=== PATIENT | female | born 1985 | race Caucasian/White ===

== ENCOUNTER 2018-05-06 11:19 | Day surgery (SDC) | payer MEDICAID, SELFPAY ==
[2018-05-06] VITALS (7 sets, daily range): BP systolic 121–146; BP diastolic 70–90; PULSE 60–97; RESP 12–18; TEMP 36.4–37.6; O2SAT 95–99
--- NOTE | 2018-05-06 11:44 | DI.RAD_ITS ---
SYMPTOMS/DIAGNOSIS: PAIN S/P FALL LEFT WRIST: Three views. There is a comminuted fracture involving the distal metaphysis of the left radius. There is mild dorsal angulation of the fracture. No other fractures or dislocations are seen. There is soft tissue swelling about the wrist. IMPRESSION: Dorsally angulated comminuted fracture of the distal left radial metaphysis. LEFT WRIST: Fluoroscopy Time: 2 sec, 0.0123 mGy Fluoroscopy was utilized by Dr. Hopper during the closed reduction of the distal radial fracture. Hard copy images again show a comminuted fracture of the distal metaphysis of the left radius. Alignment is now anatomic. Please refer to the procedure report for complete details.
--- NOTE | 2018-05-06 12:01 | ED.GENADUL_ITS ---
Discharge Plan Disposition Patient Disposition: [facility] Condition: Stable Discharge Details Chief Complaint: Orthopedic Clinical Impression: Closed fracture of distal end of left radius Reason For Visit: ARIADNA Primary Care Provider: Roxanne Edwards ED Provider: Matthew Currie Home Meds and New Rx's Prescriptions: No Action Flovent HFA 120 PUFF HFA aerosol inhaler 2 puff Inhalation BID RF: 0 methadone 10 MG/5 ML solution 97 mg PO DAILY RF: 0 ProAir HFA 8.5 GM HFA aerosol inhaler 2 puff Inhalation PRN PRNRF: 0 ibuprofen 600 MG tablet 600 mg PO TID Qty: 30 RF: 0 Medical Decision Making 33 yo female on methadone for prior opiate addiciton, no recent opiate abuse per pt, who comes in after she tripped and fell on 3 steps. Denies hitting head or loc, no vomit. She has pain in the left wrist with swelling. HAs intact capillary refill, intact sensation and 2+ radial and ulnar pulses. NO pain in elbow, upper forearm, humerus or shoulder. Denies any neck pain even on rom and has no signs of trauma to the head. Will xray the left wrist for likely fracture. All muscle soft without significant swelling so doubt compartment syndrome xray confirms fx with some displacement. Consulted Dr. Hopper from ortho who is going to take her to the OR for reduction Differential Diagnosis sprain, strain, fx Imaging Data Radiologic Study: Attestation: I personally reviewed and interpreted this imaging study as follows: Imaging: X-Ray My impression: distal radius fx HPI General Mode of arrival: EMS . Date/Time Provider Initiated Documentation: 05/06/18 11:38 . Limitations to Documentation: no limitations . Information obtained by: patient . History of Present Illness 33 year old F presents to the emergency department with the chief complaint of left forearm pain, described as moderate, with intensity rated at 9. Quality is described as aching and crushing, and is localized to the left and upper extremity. Patient reports no radiation. Patient started experiencing this hour(s) (1) and it has been constant. Rest improves symptom(s), Movement worsens symptoms . Patient notes no other symptoms.. Related Data Home Medications Medication Instructions Recorded Confirmed Flovent HFA 2 puff INHALATION BID 10/20/14 05/06/18 methadone 97 mg PO DAILY 07/21/16 05/06/18 ProAir HFA 2 puff INHALATION PRN PRN 07/09/17 05/06/18 ibuprofen 600 mg PO TID #30 tablet 07/11/17 05/06/18 Previous Rx's Medication Instructions Recorded ibuprofen 600 mg PO TID #30 tablet 07/11/17 Allergies Allergy/AdvReac Type Severity Reaction Status Date / Time peanut Allergy Mild Skin Rash Unverified 08/08/17 12:29 latex Allergy Unknown RASH Unverified 08/08/17 12:29 codeine Allergy GI upset, Unverified 08/08/17 12:29 itchy adhesive AdvReac Skin Rash Unverified 08/08/17 12:29 wellbutrin generic Allergy Uncoded 08/08/17 12:29 General Stated Complaint: Orthopedic EZRA: 3 Review of Systems Review of Systems All systems reviewed & are unremarkable except as noted in HPI and below Constitutional Denies chills and Denies fever(s) Cardiovascular Denies chest pain and Denies dyspnea Respiratory Denies cough and Denies dyspnea Gastrointestinal Denies abdominal pain, Denies nausea and Denies vomiting Genitourinary Denies dysuria Musculoskeletal Denies joint swelling Integumentary/Breasts Denies rash PFSH Surgical History Cervical Conization/LEEP (~2005) section (~10/2004) Excision, Pilonidal Cyst (06/10/12) LEFT ANKLE SURGERY (~1999) Laparoscopic, Ovarian Cystectomy (10/11/11) Ligation of fallopian tube (03/25/07) Social History Smoking and Tabacco status: Current every day Exam Const General: no acute distress Orientation: alert [facility] Head: normal to inspection Ears: external ears normal General nose exam: external nose normal Mouth: moist mucous membranes Eyes General: appearance normal, both eyes and all related structures Neck Neck: normal visual inspection Resp Effort & Inspection: normal respiratory effort and able to speak in complete sentences Cardio Rate: regular rate Skin General skin exam: no rashes or lesions noted Neuro General: alert and oriented x3 Extrem General: normal capillary refill Psych Mental Status: mental status grossly normal Course Vital Signs Temperature 37.6 C H 05/06/18 11:16 Pulse 97 H 05/06/18 11:16 Respiratory Rate 18 05/06/18 11:16 Blood Pressure 146/90 H 05/06/18 11:16 Pulse Oximetry 99 05/06/18 11:16 Temperature 37.6 C H 05/06/18 11:16 Temperature Source Skin 05/06/18 11:16 Pulse 97 H 05/06/18 11:16 Respiratory Rate 18 05/06/18 11:16 Respiratory Effort 05/06/18 11:29 Blood Pressure 146/90 H 05/06/18 11:16 Blood Pressure Position Sitting 05/06/18 11:16 Pulse Oximetry 99 05/06/18 11:16 Oxygen Delivery Method Room Air 05/06/18 11:16 Oxygen Flow Rate 0 05/06/18 11:16 Pain Level 10 05/06/18 11:16
[2018-05-06] MEDS: oxyCODONE 5 MG TAB PO (12:05)
[2018-05-06] MEDS: fentaNYL 100 MCG/2 ML VIAL IVP (13:53)
[2018-05-06] MEDS: Lactated Ringers 1,000 ML 30 ML IV (14:18)
--- NOTE | 2018-05-06 14:53 | PDOC.DSDIS_ITS ---
Discharge Plan Disposition Patient Disposition: HOME Condition: Stable Discharge Details Chief Complaint: Orthopedic Clinical Impression: Closed fracture of distal end of left radius Reason For Visit: Closed Reduction of Fx Distal Radius L Attending Provider: Melecio Hopper Primary Care Provider: Roxanne Edwards ED Provider: Matthew Currie Home Meds and New Rx's Prescriptions: New oxycodone-acetaminophen [Percocet] 5-325 mg tablet 1 tab PO Q6H PRN (Reason: pain) Qty: 10 RF: 0 Continued Flovent HFA 120 PUFF HFA aerosol inhaler 2 puff Inhalation BID RF: 0 methadone 10 MG/5 ML solution 97 mg PO DAILY RF: 0 ProAir HFA 8.5 GM HFA aerosol inhaler 2 puff Inhalation PRN PRNRF: 0 ibuprofen 600 MG tablet 600 mg PO TID Qty: 30 RF: 0 Discharge Instructions Additional Instructions: Cast care instruction sheet. Elevate L hand above heart level as much as possible for next 48 hours. Wiggle fingers and thumb L hand 10 times/hour when awake to prevent swelling. Cover cast with plastic bag sealed with large rubber band below elbow to shower. Follow up with in 2 weeks. Take Ibuprofen for pain. Use Percocet for breakthru pain if needed. Referrals: Melecio Hopper MD [ [facility] STAFF PHYSICIAN] - (f/u in 2 weeks.) Equipment/Supplies: Cast Activity:: Activity as Tolerated Remove Dressings/Wound Care:: Do Not Remove Shower/Bathe:: Cover Diet:: As Tolerated Discharge Orders Discharge Orders: Discharge Order (Routine); Ordered 05/06/18 Ordered By: Melecio Hopper DS: Diagnosis Discharge Diagnosis (1) Fracture of left distal radius: Status: Acute
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
== END 2018-05-06 16:32 | disposition home or self-care (01) ==
LOC: ER 12:57 → SUR 13:20
PROVIDERS: Emergency Provider Emergency Medicine; PCP Internal Medicine; Visit Provider Orthopaedic Surgery
PROC: 0PSJXZZ Reposition Left Radius, External Approach (ICD-10-PCS; CPT 25605; principal; 2018-05-06 12:30)
DX: S52.592A Other fractures of lower end of left radius, initial encounter for closed fracture (principal); W18.30XA Fall on same level, unspecified, initial encounter
CPT/HCPCS: 25605; 96374; 99285; 73110; 99284; J1100; J2250; J2405; J3010

== ENCOUNTER 2018-05-23 11:12 | Outpatient (CLI) | payer MEDICAID, SELFPAY ==
--- NOTE | 2018-05-23 10:59 | DI.RAD_ITS ---
SYMPTOMS/DIAGNOSIS: FX LT DISTAL RADIUS LEFT WRIST: Two views. Comparison is 05/06/18. The patient's wrist is in a cast which does obscure the underlying bony detail. There is again seen a nondisplaced distal left radial fracture.
== END 2018-05-23 11:32 ==
PROVIDERS: PCP Internal Medicine; Visit Provider Physician Assistant
DX: S52.592D Other fractures of lower end of left radius, subsequent encounter for closed fracture with routine healing (principal)
CPT/HCPCS: 73100

== ENCOUNTER 2018-06-13 09:46 | Outpatient (CLI) | payer MEDICAID, SELFPAY ==
--- NOTE | 2018-06-13 09:25 | DI.RAD_ITS ---
SYMPTOMS/DIAGNOSIS: LT WRIST FX LEFT WRIST: The out of cast examination today reveals no interval change in the alignment of a fracture involving the distal radius when compared with the in cast study of 05/23/18.
== END 2018-06-13 10:06 ==
PROVIDERS: PCP Internal Medicine; Visit Provider Physician Assistant
DX: S52.592D Other fractures of lower end of left radius, subsequent encounter for closed fracture with routine healing (principal)
CPT/HCPCS: 73100

== ENCOUNTER 2018-07-16 11:42 | Outpatient (CLI) | payer MEDICAID, SELFPAY ==
--- NOTE | 2018-07-16 10:36 | DI.RAD_ITS ---
SYMPTOMS/DIAGNOSIS: ANKLE PAIN, LT WRIST FX LEFT WRIST: Two views. Comparison is 06/13/18. There has been no change in alignment of the healing fracture of the distal left radial metaphysis. No new fractures or dislocations are seen. The soft tissues are unremarkable. LEFT ANKLE: Three views. No priors. There is deformity of the distal tibia and fibula which may be post traumatic in appearance. Mild degenerative changes are seen at the ankle joint. No acute fracture or dislocation is seen. The bones do appear to be normally mineralized. IMPRESSION: 1. Deformity involving the distal left tibia and fibula which may be post traumatic in nature. 2. Degenerative changes seen about the left ankle. If there are prior studies for comparison, they may be submitted and an addendum will be issued.
== END 2018-07-16 12:02 ==
PROVIDERS: PCP Internal Medicine; Visit Provider Physician Assistant
DX: S52.502D Unspecified fracture of the lower end of left radius, subsequent encounter for closed fracture with routine healing (principal); M25.572 Pain in left ankle and joints of left foot; M19.072 Primary osteoarthritis, left ankle and foot; M21.962 Unspecified acquired deformity of left lower leg
CPT/HCPCS: 73100; 73610

== ENCOUNTER 2019-02-27 19:54 | Emergency (ER) | payer MEDICAID, SELFPAY ==
[2019-02-27 19:56] VITALS: BP 160/106; PULSE 86; RESP 14; TEMP 36.6; O2SAT 98
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
[2019-02-27] MEDS: Ibuprofen 600 MG TAB PO (20:19)
--- NOTE | 2019-02-27 20:45 | DI.RAD_ITS ---
EXAM: XR HAND RT COMPLETE CLINICAL HISTORY: pain s/p fall. TECHNIQUE: 2D digital imaging was performed. COMPARISON: XR WRIST LT COMPLETE from 05/06/2018 FINDINGS: BONES: No acute fracture is present. No bony destructive lesion is seen. JOINTS: No dislocation present. SOFT TISSUE: Normal. IMPRESSION: Unremarkable radiographs of the right hand.
--- NOTE | 2019-02-27 20:47 | DI.RAD_ITS ---
EXAM: XR WRIST RT COMPLETE CLINICAL HISTORY: pain s/p fall. TECHNIQUE: 2D digital imaging was performed. COMPARISON: XR wrist LT limited from 07/16/2018 FINDINGS: BONES: No acute fracture is present. No bony destructive lesion is seen. JOINTS: The carpal bones are normally aligned. SOFT TISSUE: Normal. IMPRESSION: Unremarkable radiographs of the right wrist.
--- NOTE | 2019-02-27 20:59 | DI.VRAD_ITS ---
PROCEDURE INFORMATION: Exam: XR Right Hand Exam date and time: 02/27/2019 8:49 PM Age: 34 years old Clinical history: Pain and injury or trauma; Fall; Initial encounter; Blunt trauma (contusions or hematomas; Wrist; Right; Hand TECHNIQUE: Imaging protocol: XR Right hand. Views: 3 or more views. COMPARISON: CR RIGHT HAND COMPLETE 04/13/2013 5:19 PM FINDINGS: Bones/joints: No acute fracture. Joint spaces are maintained. Soft tissues: Normal. IMPRESSION: No acute findings. Dictated and Authenticated by: Delvin Regalado MD. Ordering:DANIELLE Castro MD
[2019-02-27 21:00] VITALS: BP 162/109; PULSE 91; RESP 16; O2SAT 97
--- NOTE | 2019-02-27 21:00 | DI.VRAD_ITS ---
PROCEDURE INFORMATION: Exam: XR Right Wrist Exam date and time: 02/27/2019 8:50 PM Age: 34 years old Clinical history: Injury or trauma; Fall; Initial encounter; Blunt trauma (contusions or hematomas; Hand; Right TECHNIQUE: Imaging protocol: XR Right wrist. Views: 3 or more views. COMPARISON: CR RT WRIST COMPLETE + NAVICULAR 04/13/2013 5:22 PM FINDINGS: Bones/joints: No acute fracture. Joint spaces are maintained. Soft tissues: Normal. IMPRESSION: No acute findings. Dictated and Authenticated by: Delvin Regalado MD. Ordering:DANIELLE Castro MD
--- NOTE | 2019-02-27 21:07 | NUR.NOTE ---
Thumb spica to right wrist. Educated on use. Discharge instructions reviewed with verbal understanding. aware to f/u with pcp as needed. ambulated to exit with steady gait.
--- NOTE | 2019-02-27 21:08 | NUR.NOTE ---
BP elevated, MD Currie aware. pt encouraged to f/u with pcp.
== END 2019-02-27 21:05 | disposition home or self-care (01) ==
PROVIDERS: Emergency Provider Emergency Medicine; PCP Internal Medicine
DX: S60.211A Contusion of right wrist, initial encounter (principal); Y04.0XXA Assault by unarmed brawl or fight, initial encounter; Y07.03 Male partner, perpetrator of maltreatment and neglect
CPT/HCPCS: 29125; 99284; 73110; 73130; 99283; L3807

== ENCOUNTER 2019-11-16 16:58 | Emergency (ER) | payer MEDICAID, SELFPAY ==
[2019-11-16 17:03] VITALS: BP 163/111; PULSE 102; RESP 20; TEMP 36.8; O2SAT 98
[2019-11-16 17:19] LABS: Bilirubin Negative (Negative); Blood Trace-intact (Negative); Clarity Clear (Clear); Glucose Negative (Negative); Ketones Negative (Negative); Leukocyte Esterase Trace (Negative); Nitrite Negative (Negative); Specific Gravity 1.015 (1.005-1.025); Urobilinogen 0.2 EU/dL (Up TO 0.2); pH 7.5 (5-8)
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
[2019-11-16] MEDS: Ketorolac 30 MG/ML VIAL IVP (17:33)
[2019-11-16 17:34] LABS: Bacteria Negative HPF (Negative); C & S Indicated? Yes; Casts Negative LPF (Negative); Crystals Negative HPF (Negative); Epithelial Cells Few HPF (Negative); Mucus Negative (Negative); Other Cells Negative (Negative); RBC Negative HPF (0-2); WBC 0-2 HPF (0-5)
--- NOTE | 2019-11-16 17:37 | NUR.NOTE ---
Nursing Note: Radiology able to find US Tech that will come in ETA 1 1/2 hours patient informed. Patient states she can not wait that long has someone waiting for her and kids at home alone. MD notified. Patient will need to sign AMA patient updated. Will medicate for pain and wait for urine to come back.
[2019-11-16 17:50] VITALS: BP 141/102; PULSE 96; RESP 18; O2SAT 100
== END 2019-11-16 17:49 | disposition left against medical advice (07) ==
PROVIDERS: Emergency Provider Student in an Organized Health Care Education/Training Program; PCP Internal Medicine
DX: R10.32 Left lower quadrant pain (principal); Z53.29 Procedure and treatment not carried out because of patient's decision for other reasons
CPT/HCPCS: 96372; 99284; 81003; 81015; 87086; 99283; J1885

== ENCOUNTER 2021-02-07 11:48 | Outpatient (CLI) | payer MEDICAID, SELFPAY ==
--- NOTE | 2021-02-07 11:45 | DI.RAD_ITS ---
Exam(s) XR WRIST LT COMPLETE EXAM: XR WRIST LT COMPLETE CLINICAL HISTORY: f/u L wrist pain s/p ECTR. TECHNIQUE: 2D digital imaging was performed. COMPARISON: CR,XR XR WRIST RT COMPLETE from 02/27/2019 FINDINGS: BONES: There is an old fracture deformity of the distal radial metaphysis. No acute fracture is pres ent. No bony destructive lesion is seen. JOINTS: The carpal bones are normally aligned. SOFT TISSUE: Normal. IMPRESSION: Old distal radial fracture. Otherwise unremarkable radiographs of the left wrist. DATA REPOSITORY: RADIATION DOSE DELIVERED:
== END 2021-02-07 11:49 | disposition home or self-care (01) ==
LOC: DIORS 11:48
PROVIDERS: PCP Internal Medicine; Referring Provider Internal Medicine; Visit Provider Student in an Organized Health Care Education/Training Program
DX: M25.532 Pain in left wrist (principal); Z98.890 Other specified postprocedural states; Z87.81 Personal history of (healed) traumatic fracture
CPT/HCPCS: 73110

== ENCOUNTER 2021-02-18 01:37 | Outpatient (CLI) | payer MEDICAID, SELFPAY ==
--- NOTE | 2021-02-18 07:00 | DI.MRI_ITS ---
Exam(s) MR UPPER JOINT LT WO EXAM: MR UPPER JOINT LT WO CLINICAL HISTORY: lt wrist pain, m25.532. TECHNIQUE: Multiplanar multisequence MRI was performed. COMPARISON: None. FINDINGS: BONES: No acute fracture is identified. There is mild edema seen in the dorsal aspect of the lunate. No findings to suggest lunate collapse. There is an old healed distal radial fracture deformity. JOINTS: The radiocarpal joint is unremarkable. The carpal joints are unremarkable. TENDONS: Flexors: Unremarkable. Extensors: Unremarkable. MUSCLES: Unremarkable. MEDIAN NERVE: Unremarkable on this noncontrast examination. ULNAR NERVE: Unremarkable on this noncontrast examination. SOFT TISSUES: Unremarkable. LIGAMENTS: Unremarkable. TRIANGULAR FIBROCARTILAGE: There is appear to be mild increased signal within the TFCC. This may rep resent a tear versus degeneration. OTHER: IMPRESSION: 1. Mild increased signal within the TFCC which may represent a tear versus degeneration. 2. Mild edema in the dorsal aspect of the lunate. No evidence of an occult fracture. Avascular necr osis cannot be entirely excluded. 3. Old healed distal radial fracture. DATA REPOSITORY:
== END 2021-02-18 01:57 ==
PROVIDERS: PCP Internal Medicine; Visit Provider Student in an Organized Health Care Education/Training Program
DX: M25.532 Pain in left wrist (principal); R93.7 Abnormal findings on diagnostic imaging of other parts of musculoskeletal system; Z87.828 Personal history of other (healed) physical injury and trauma
CPT/HCPCS: 73221

== ENCOUNTER 2021-06-10 21:28 | Emergency (ER) | payer MEDICAID, SELFPAY ==
[2021-06-10 21:40] VITALS: BP 153/97; PULSE 98; RESP 18; TEMP 37.7; O2SAT 100
--- NOTE | 2021-06-10 21:55 | ED.GENADUL_ITS ---
Discharge Plan Disposition Patient Disposition: HOME Condition: Stable Discharge Details Clinical Impression: Enterocolitis Primary Care Provider: Roxanne Edwards ED Provider: Beatriz Gomez Home Meds and New Rx's Prescriptions: New dicyclomine 20 mg tablet 20 mg PO BID PRN (Reason: stomach cramps) Qty: 14 0RF ondansetron 4 mg tablet,disintegrating 4 mg PO Q8H PRN5 Days Qty: 15 0RF No Action sumatriptan succinate 100 mg tablet 100 mg PO ONCE 0RF Excedrin Migraine 250-250-65 mg tablet 2 tab PO Q6H PRN0RF methadone 10 MG/5 ML solution 110 mg PO QAM 0RF albuterol sulfate [ProAir HFA] 8.5 GM HFA aerosol inhaler 2 puff Inhalation PRN PRN0RF ibuprofen 600 MG tablet 600 mg PO TID Qty: 30 0RF diphenhydramine-acetaminophen [Tylenol PM Extra Strength] 25-500 mg Tablet 1 tab PO Q6H PRN0RF Discharge Instructions Instructions: Gastroenteritis (ED) Additional Instructions: Take the nausea and pain medication up to 3 times daily as directed approximately 20 to 30 minutes before eating or drinking anything. Clear liquid diet for the next 1 to 2 days. Then advance as tolerated with a bland diet. Stay away from anything fried, fatty, spicy or dairy. The CT today shows some inflammation in your bowel. This can be caused from food poisoning or a virus. Follow up with primary care provider in 3-5 days. Return to ED sooner if any worsening or concerns. Increase oral fluids. Drink Gatorade or similar electrolyte drinks while having the diarrhea. Please take Tylenol or Ibuprofen with food every 4-6 hours as needed for pain and swelling. Stand Alone Forms: Work Release Referrals: Roxanne Edwards [Primary Care Provider] - 3 days Discharge Data Discharge Date/Time-TO BE ENTERED AT DEPARTURE: 06/11/21 06:15 Medical Decision Making 36-year-old female presents to the ER with chief complaint of upper abdominal pain nausea vomiting and diarrhea which began this evening. Patient denies any other associated symptoms including fever, dysuria or chills. Patient reports that she has been off of methadone for the last 3 weeks. She was taking methadone once a week for the last 2 years. She has a past medical history of IV drug use, currently in remission, acute hepatitis C, asthma, depression, surgical history includes hysterectomy and a liver biopsy. Ultrasound-guided IV started in the right brachial vein. Patient tolerated well. Labs obtained and sent to the lab. Normal saline 1 L bolus ordered. Zofran [address] abdomen pelvis with IV contrast ordered. Differential diagnosis includes but not limited to cholecystitis, appendicitis, gastroenteritis, small bowel obstruction, methadone withdrawal, viral illness. CBC shows slightly elevated white blood cell count at 12.41, neutrophils 10.49, potassium 3.2 sodium 141, anion gap 11.7 BUN 17, creatinine 1.1 glucose 111 urinalysis shows 100 protein trace blood no leukocytes no nitrites. CT abdomen pelvis with IV contrast noted below: IMPRESSION: 1. There are diffuse fluid filled loops of small bowel and colon with scattered air fluid levels. The bowel loops are mildly distended. There is mild associated bowel wall thickening and inflammatory changes. No evidence of obstruction. Findings most consistent with diffuse enterocolitis. 2. Contracted but otherwise normal gallbladder. Thank you for allowing us to participate in the care of your patient. Dictated and Authenticated by: Abebe Vazquez MD 12:04 AM: Discussed results with patient. She verbalizes understanding. She is still having some nausea and vomiting and had an episode of diarrhea while here in the department. Phenergan, Pepcid and clonidine 0.1 mg ordered for possible delayed methadone withdrawal. Zofran tablets to go ordered. And prescription for Zofran and dicyclomine. HPI General Mode of arrival: ambulatory . Date/Time Provider Initiated Documentation: 06/10/21 21:29 . Limitations to Documentation: no limitations . Information obtained by: patient, RN notes reviewed and old records reviewed . HPI Narrative: 36-year-old female presents to the ER with chief complaint of upper abdominal pain nausea vomiting and diarrhea which began this evening. Patient denies any other associated symptoms including fever, dysuria or chills. Patient reports that she has been off of methadone for the last 3 weeks. She was taking methadone once a week for the last 2 years. She has a past medical history of IV drug use, currently in remission, acute hepatitis C, asthma, depression, surgical history includes hysterectomy and a liver biopsy. Related Data Home Medications Medication Instructions Recorded Confirmed methadone 10 mg/5 mL oral solution 110 mg PO QAM 07/21/16 02/07/21 albuterol sulfate 90 mcg/actuation 2 puff INHALATION PRN PRN 07/09/17 02/07/21 aerosol inhaler (ProAir HFA) ibuprofen 600 mg tablet 600 mg PO TID #30 tab 07/11/17 02/07/21 nyvjnzy-zofbmjzveunkz-ugnadigp 250 2 tab PO Q6H PRN 05/23/18 02/07/21 mg-250 mg-65 mg tablet (Excedrin Migraine) sumatriptan succinate 100 mg tablet 100 mg PO ONCE 05/23/18 02/07/21 dicyclomine 20 mg tablet 20 mg PO BID PRN #14 tab 06/10/21 diphenhydramine 25 1 tab PO Q6H PRN 06/10/21 06/10/21 mg-acetaminophen 500 mg tablet (Tylenol PM Extra Strength) ondansetron 4 mg disintegrating 4 mg PO Q8H PRN 5 Days #15 tab 06/10/21 tablet Previous Rx's Medication Instructions Recorded ibuprofen 600 mg tablet 600 mg PO TID #30 tab 07/11/17 dicyclomine 20 mg tablet 20 mg PO BID PRN #14 tab 06/10/21 ondansetron 4 mg disintegrating 4 mg PO Q8H PRN 5 Days #15 tab 06/10/21 tablet Allergies Allergy/AdvReac Type Severity Reaction Status Date / Time peanut Allergy Mild Skin Rash Unverified 06/10/21 21:49 latex Allergy Unknown RASH Unverified 06/10/21 21:49 codeine Allergy GI upset, Unverified 06/10/21 21:49 itchy adhesive AdvReac Skin Rash Unverified 06/10/21 21:49 wellbutrin generic Allergy Uncoded 06/10/21 21:49 General Stated Complaint: Nausea/Vomit/Diar EZRA: 3 Review of Systems All systems reviewed & are unremarkable except as noted in HPI and below Gastrointestinal Gastrointestinal: Reports abdominal pain, Denies hematochezia, Reports diarrhea, Reports nausea and Reports vomiting Genitourinary Genitourinary: Reports dysuria PFSH All Active Problems Enterocolitis (Acute) Left carpal tunnel syndrome (Acute) Left wrist pain (Acute) Post-traumatic osteoarthritis of left ankle (Chronic) Abnormal laboratory test result (Acute) TSH DEFICIENCY Acute hepatitis C (Acute) Allergic rhinitis (Acute) Asthma (Acute) Cervical intraepithelial neoplasia grade 1 (Acute) Chronic pelvic pain in female (Acute) Depressive disorder (Acute) Dyslipidemia (Acute) Headache (Acute) Obstructive sleep apnea syndrome (Acute) Enlarged pituitary gland (Acute) Smoker (Acute) Substance abuse (Acute) Uterovaginal prolapse (Acute) PELVIC RELAXATION Fracture of left distal radius (Acute) Status post closed reduction on 05/06/2018 Surgical History Cervical Conization/LEEP (~2005) section (~10/2004) Excision, Pilonidal Cyst (06/10/12) Laparoscopic, Ovarian Cystectomy (10/11/11) RIGHT LEFT ANKLE SURGERY (~1999) Ligation of fallopian tube (03/25/07) Social History Smoking/Tobacco Use Status: Current every day Tobacco Type: cigarettes Smoking risk assessment performed?: Yes Alcohol Intake: current Alcohol Intake frequency: a few times a month Alcohol type: other Drug use: Daily Substance use type: marijuana Details: marijuana at bedtime Do you feel safe at home: Yes Do you feel safe in your relationship?: Yes Exam Narrative Exam Narrative: Constitutional: Alert and oriented x3. Appears stated age. Normal body habitus. Head: Normocephalic, no trauma. Eyes: Pupils PERRL, Red reflex noted, EOM's intact. Eyelids symmetrical without lesions, discharge, or swelling. ENT: Bilateral TM's WNL, External ear normal to inspection, no mastoid TTP, swelling, or erythema, Nasal turbinates WNL, no nasal discharge. Normal d entition, Posterior pharynx WNL, no exudate. Chest: RRR, Normal S1, S2, distal pulses intact. Resp: Lungs clear to auscultation bilaterally, no wheezes, rales, or rhonchi. Abdomen: Soft, non-distended, Normoactive bowel sounds all 4 quads. Tenderness to the right upper quadrant with palpation. Musculoskeletal: Normal gait, 5/5 strength to all four extremities. Skin: No suspicious rashes or lesions. Capillary refill less than 2 sec. Neurologic: Cranial nerves II-XII intact. Alert and oriented x 3. Motor: No deficits noted. Sensory: Intact bilaterally all 4 extremities. Reflexes: DTR's intact bilaterally.. Hematologic/Lymphatic: No ecchymosis, no lymphadenopathy. Course Vital Signs Vital signs: Vital Signs Temperature 37.7 C H 06/10/21 21:40 Pulse 98 H 06/10/21 21:40 Respiratory Rate 18 06/10/21 21:40 Blood Pressure 153/97 H 06/10/21 21:40 Pulse Oximetry 100 06/10/21 21:40 Temperature 37.7 C H 06/10/21 21:40 Temperature Source Temporal Artery Scan 06/10/21 21:40 Pulse 98 H 06/10/21 21:40 Respiratory Rate 18 06/10/21 21:40 Respiratory Effort Non-Labored 06/10/21 21:43 Blood Pressure 153/97 H 06/10/21 21:40 Blood Pressure Position Sitting 06/10/21 21:40 Pulse Oximetry 100 06/10/21 21:40 Oxygen Delivery Method Room Air 06/10/21 21:40 Oxygen Flow Rate 0 06/10/21 21:40 Pain Level 7 06/10/21 21:40 Procedures EJ/Peripheral Line Arm R: Time Out Performed: No Skin Cleansed in Sterile Fashion: Yes Size (gauge): 20 IV Secured and Dressing Applied: Yes Patient Tolerated Procedure: well PAWSS Have you Been Recently Intoxicated or Drunk Within the Last 30 days?: No Have you Ever Experienced Previous Episodes of Alcohol Withdrawal?: No Have you ever Experienced Withdrawal Seizures?: No Have you ever Experienced Delirium Tremens(DT)s?: No Have you ever undergone Alcohol Rehabilitation Treatment (i.e, inpt ot outpatient treatment programs)?: No Have you ever Experienced Blackouts?: No Have you ever Combined Alcohol with other Downers within the last 90 days?: No Have you ever Combined Alcohol with any other Substance of Abuse during the last 90 days?: No Positive Blood Alcohol level on Presentation? [PCS.BAL]: No Evidence of Increased Autonomic Activity (i.e. HR>120, tremor, sweating, agitation, nausea)?: No Result: 0
[2021-06-10 22:02] LABS: Bilirubin Negative (Negative); Blood Trace-intact (Negative); Clarity Clear (Clear); Glucose Negative (Negative); Ketones Negative (Negative); Leukocyte Esterase Negative (Negative); Nitrite Negative (Negative); Specific Gravity >= 1.030 (1.005-1.025); Urobilinogen 0.2 EU/dL (Up TO 0.2); pH 6.5 (5-8)
[2021-06-10 22:15] LABS: Bacteria Many HPF (Negative); Epithelial Cells Many HPF (Negative); RBC Negative HPF (0-2)
--- NOTE | 2021-06-10 22:15 | DI.CT_ITS ---
Exam(s) CT ABDOMEN PELVIS W EXAM: CT ABDOMEN PELVIS W CLINICAL HISTORY: Abd pain, N/V/D, R/O Cholecystitis. TECHNIQUE: Imaging Protocol: Axial computed tomography images with coronal and sagittal reformatted images were created and reviewed CONTRAST MATERIAL: Intravenous: Omnipaque 350 Contrast volume:100 ml Oral: no COMPARISON: No exams were available for comparison FINDINGS: ABDOMEN: Lung Bases: Normal where visualized. Liver: Normal density. No measurable mass. Gallbladder and biliary tract: Contracted. No radiodense calculus or biliary dilation. Pancreas: Normal density, no abnormal calcifications or inflammatory process. Spleen: Normal. Kidneys: Normal size, contour and axis. No radiodense stones or obstructive uropathy. No masses seen. Adrenal glands: No masses seen. Abdominal Aorta: Abdominal portion non-dilated. PELVIS: Bladder: No gross wall thickening. No calculi.No focal mass. Bowel: Abnormal thickening of bowel wall of multiple loops of jejunum consistent with enteritis. Mid to distal small bowel unremarkable. No obstruction. Appendix normal. Colon contains fluid and sma ll amount of stool. Peritoneal cavity: No ascites, collection or mesenteric inflammatory response. Bones: Within normal limits for age. Reproductive organs: Status post hysterectomy. Ovaries unremarkable.. Soft tissues: Small fatty con taining hernia seen at the right lateral abdominal wall at the level of the right iliac crest. Lymph nodes: Unremarkable. Impression: Wall thickening loops of proximal small bowel. Fluid-filled colon. Findings consistent with enteroc olitis. At small fatty right sided abdominal wall hernia.. RADIATION DOSE DELIVERED: 712.95mGy.cm Total DLP DATA REPOSITORY: All CT scans at this facility are submitted to the National Radiology Data Registry (NRDR) Dose Index Registry (DIR) with the [employer] ([employer]). RADIATION OPTIMIZATION: All CT scans at this facility use at least one of these dose optimization te chniques: automated exposure control; mA and/or kV adjustment per patient size (includes targeted exa ms where dose is matched to clinical indication); or iterative reconstruction.
[2021-06-10 22:16] LABS: C & S Indicated? No/Sq. Contamination; Casts Negative LPF (Negative); Crystals Negative HPF (Negative); Mucus Negative (Negative)
[2021-06-10 22:19] LABS: Abs Immature Grans 0.04 10^3/uL (0.0-0.06); Absolute Basophil Count 0.02 10^3/uL (0.0-0.2); Absolute Eosinophil Count 0.19 10^3/uL (0.0-0.7); Absolute Lymphocyte Count 1.27 10^3/uL (1.2-3.4); Absolute Monocyte Count 0.41 10^3/uL (0.1-0.8); Absolute Neutrophil Count 10.49 10^3/uL (1.2-6.7); Basophils % 0.2; Eosinophils % 1.5; HCT 41.9 % (36.0-46.0); HGB 13.4 g/dL (11.2-15.7); Immature Grans % 0.3; Lymphocytes % 10.2; MCH 30.7 pg (27.0-33.0); MCV 96.1 fL (80-95); MPV 9.7 fL (8.0-11.0); Monocytes % 3.3; Neutrophils % 84.5; Nucleated RBC 0 %; Platelet Count 332 10^3/uL (130-400); RBC 4.36 10^6/uL (3.93-5.22); RDW-SD 50.3 fL; WBC 12.41 10^3/uL (4.4-10.8)
[2021-06-10] MEDS: Ondansetron 4 MG/2 ML VIAL IVP (22:23)
[2021-06-10] MEDS: Normal Saline 1,000 ML 1000 ML IV (22:23)
[2021-06-10 22:34] LABS: ALT 36 U/L (14-59); AST 17 U/L (15-37); Albumin 4.7 g/dL (3.4-5.0); Alkaline Phosphatase 88 U/L (46-116); Anion Gap 11.7 mmol/L (3-11); BUN 17 mg/dL (7-18); Bilirubin, Total 0.7 mg/dL (0.2-1.0); CO2 23.3 mmol/L (21.0-32.0); CREATININE 1.1 mg/dL (0.55-1.02); Calcium 9.3 mg/dL (8.5-10.1); Chloride 106 mmol/L (98-107); Estimated GFR 55.89 (mL/min/1.73m2); Glucose 111 mg/dL (74-106); Magnesium 2.2 mg/dL (1.8-2.4); Potassium 3.2 mmol/L (3.5-5.1); Sodium 141 mmol/L (136-145); Total Protein 8.7 g/dL (6.4-8.2)
[2021-06-10] MEDS: Omnipaque 350 MG/ML 100 ML BTL IJ (23:00)
[2021-06-10] MEDS: Ketorolac 15 MG/ML VIAL IVP (23:13)
[2021-06-10 23:14] VITALS: BP 156/98; PULSE 95; RESP 14; TEMP 38.5; O2SAT 100
[2021-06-10 23:22] VITALS: TEMP 37
--- NOTE | 2021-06-10 23:40 | DI.VRAD_ITS ---
PROCEDURE INFORMATION: Exam: CT Abdomen And Pelvis With Contrast Exam date and time: 06/10/2021 10:53 PM Age: 36 years old Clinical indication: Nausea and vomiting and other: Diarrhea; Abdominal pain; Generalized; Patient HX: R/O colitis, acute cholecystitis. TECHNIQUE: Imaging protocol: Computed tomography of the abdomen and pelvis with contrast. Radiation optimization: All CT scans at this facility use at least one of these dose optimization techniques: automated exposure control; mA and/or kV adjustment per patient size (includes targeted exams where dose is matched to clinical indication); or iterative reconstruction. COMPARISON: ABDOMEN LIMITED/FOLLOW UP US 07/30/2017 3:21 PM FINDINGS: Lungs: The lungs are normal. There is no evidence of focal pulmonary consolidation. Pleural spaces: There is no evidence of pneumothorax. There are no pleural effusions present. Heart: The cardiac structures are normal. Liver: There are no focal liver lesions present. There is no evidence of intrahepatic or extrahepatic biliary ductal dilation. Gallbladder and bile ducts: The gallbladder is contracted but otherwise normal. There is no cholelitiasis, wall thickening or pericholecystic fluid to suggest cholecystitis. Pancreas: The pancreas is normal. Spleen: The spleen is normal. Adrenal glands: The adrenal glands are normal. Kidneys and ureters: The kidneys are normal. Stomach and bowel: There are diffuse fluid filled loops of small bowel and colon with scattered air fluid levels. The bowel loops are mildly distended. There is mild associated bowel wall thickening and inflammatory changes. No evidence of obstruction. Findings most consistent with diffuse enterocolitis. There is no evidence of intestinal obstruction. No diverticulitis is present. Appendix: A normal appendix is identified. There is no evidence of distention or periappendiceal inflammation to suggest appendicitis. Intraperitoneal space: There is no free intraperitoneal air. There is no evidence of free intraperitoneal or pelvic fluid. There are no soft tissue masses or fluid collections. Vasculature: The aorta is normal without evidence of significant atherosclerosis or aneurysmal disease. The peripheral arterial vascular system visualized is unremarkable. The portal venous system visualized is unremarkable. The venous system visualized is unremarkable. Lymph nodes: There is no evidence of lymphadenopathy. Urinary bladder: The bladder is normal. Reproductive: The uterus is normal. The ovaries are normal. Bones/joints: The skeletal structures show no evidence of fracture or other acute processes. Soft tissues: The extra-abdominal soft tissues are normal. IMPRESSION: 1. There are diffuse fluid filled loops of small bowel and colon with scattered air fluid levels. The bowel loops are mildly distended. There is mild associated bowel wall thickening and inflammatory changes. No evidence of obstruction. Findings most consistent with diffuse enterocolitis. 2. Contracted but otherwise normal gallbladder. Dictated and Authenticated by: Abebe Vazquez MD. Ordering:FIORELLA Henderson MD
[2021-06-11] MEDS: Normal Saline Flush 10 ML SYR IVP (00:14)
[2021-06-11] MEDS: cloNIDine 0.1 MG TAB PO (00:14)
[2021-06-11] MEDS: Famotidine 20 MG/2 ML VIAL IVP (00:14)
[2021-06-11 01:07] VITALS: BP 148/92; PULSE 77; RESP 14; TEMP 37.7; O2SAT 100
[2021-06-11 02:32] VITALS: BP 147/94; PULSE 82; RESP 12; TEMP 37; O2SAT 100
[2021-06-11 04:03] VITALS: BP 154/95; PULSE 73; RESP 18; TEMP 37.1; O2SAT 100
[2021-06-11 05:58] VITALS: BP 135/76; PULSE 64; RESP 16; TEMP 36.9; O2SAT 100
[2021-06-11 06:04] VITALS: BP 135/76; PULSE 64; RESP 16; TEMP 36.9; O2SAT 100
== END 2021-06-11 06:15 | disposition home or self-care (01) ==
PROVIDERS: Emergency Provider Registered Nurse Emergency; PCP Internal Medicine
DX: K52.9 Noninfective gastroenteritis and colitis, unspecified (principal); R10.10 Upper abdominal pain, unspecified; R11.2 Nausea with vomiting, unspecified; R19.7 Diarrhea, unspecified
CPT/HCPCS: 36556; 80053; 96361; 96365; 96375; 99285; 74177; 81003; 81015; 83735; 85025; 99284; J1885; J2405; J3490

== ENCOUNTER 2021-09-19 23:41 | Emergency (ER) | payer MEDICAID, SELFPAY ==
[2021-09-19 23:45] VITALS: BP 148/100; PULSE 125; RESP 18; TEMP 36.8; O2SAT 99
--- NOTE | 2021-09-20 | DI.RAD_ITS ---
Exam(s) XR HAND RT COMPLETE EXAM: XR HAND RT COMPLETE CLINICAL HISTORY: pain, injury, tender 3-5 digits. TECHNIQUE: 2D digital imaging was performed. COMPARISON: CR,XR XR HAND RT COMPLETE from 02/27/2019 FINDINGS: 3 views There is mild dorsal soft tissue swelling, as seen on the lateral view. Also seen on the lateral vie w is a 2 x 1 millimeter osteophytic density off the dorsal proximal aspect of the distal phalanx of t he 5th finger, not previously present. Possibly avulsion injury. Correlation with site of tendernes s is recommended. IMPRESSION: Fifth finger findings as above, not previously evident on February 2019 images. Correlation with sit e of tenderness is recommended. DATA REPOSITORY: RADIATION DOSE DELIVERED:
--- NOTE | 2021-09-20 00:06 | ED.GENADUL_ITS ---
Discharge Plan Disposition Patient Disposition: HOME Condition: Stable Discharge Details Clinical Impression: Contusion of right hand, initial encounter Primary Care Provider: Roxanne Edwards ED Provider: Tejinder Marr Home Meds and New Rx's Prescriptions: Continued ibuprofen 600 MG tablet 600 mg PO TID Qty: 30 0RF diphenhydramine-acetaminophen [Tylenol PM Extra Strength] 25-500 mg Tablet 1 tab PO Q6H PRN Discharge Instructions Instructions: Contusion in Adults (ED) Additional Instructions: Keep splint in place for the next few days. Please take ibuprofen over the counter. Take 600mg by mouth every 6 hours as needed for pain. If pain persists if pain persists greater than 1 week, please follow-up with orthopedics. Please take ibuprofen over the counter. Take 600mg by mouth every 6 hours as needed for pain. Please contact your primary care physician to arrange follow-up. Return to the ER immediately for any worsening or new concerning symptoms. Referrals: Roxanne Edwards [Primary Care Provider] - Medical Decision Making 0012 -- 36-year-old female here with right hand injury after slip and fall around 10 PM tonight. Patient has swelling and ecchymosis as well as tenderness dorsal hand over her 3-5 MCP joints. Bruising and swelling is worse just proximal to 4th MCP. Patient is neurovascular intact distally. Concern for hand fracture. Plan to obtain x-ray. Will give ibuprofen 600 mg and apply ice. 135 -- xray of the rt hand reviewed and interpreted by radiology: No acute osseous abnormality. If symptoms persist, follow-up imaging is advised. Patient was reassessed. Results discussed with the patient. Suspect contusion. Volar splint applied to hand. Patient neurovascular intact post splint application. Usual customary discharge instructions were reviewed with the patient. She was encouraged to follow-up with orthopedics should symptoms persist greater than 1 week. She was encouraged to return for any worsening or new concerning symptoms. HPI General Mode of arrival: ambulatory . Date/Time Provider Initiated Documentation: 09/19/21 23:48 . Limitations to Documentation: no limitations . Information obtained by: patient . HPI Narrative: 36yo f here with chief complaint of right hand pain. Patient notes around 10 PM tonight she slipped and fell in her bathroom and landed in her tub. She injured her right hand during the fall. Pain is localized to right third and fourth MCPs and digits 3-5. She denies associated numbness. She does note she impacted her right elbow and left lower leg during the fall but does not believe she sustained significant injury. Related Data Home Medications Medication Instructions Recorded Confirmed ibuprofen 600 mg tablet 600 mg PO TID #30 tabs 07/11/17 09/19/21 diphenhydramine 25 1 tab PO Q6H PRN 06/10/21 09/19/21 mg-acetaminophen 500 mg tablet (Tylenol PM Extra Strength) Previous Rx's Medication Instructions Recorded ibuprofen 600 mg tablet 600 mg PO TID #30 tabs 07/11/17 Allergies Allergy/AdvReac Type Severity Reaction Status Date / Time peanut Allergy Mild Skin Rash Unverified 09/19/21 23:48 latex Allergy Unknown RASH Unverified 09/19/21 23:48 codeine Allergy GI upset, Unverified 09/19/21 23:48 itchy adhesive AdvReac Skin Rash Unverified 09/19/21 23:48 wellbutrin generic Allergy Uncoded 09/19/21 23:48 General Stated Complaint: Orthopedic EZRA: 4 Review of Systems Musculoskeletal Musculoskeletal: Reports as per HPI Neurologic Neurologic: Reports as per HPI and Denies sensory deficit PFSH All Active Problems Contusion of right hand, initial encounter (Acute) Left carpal tunnel syndrome (Acute) Left wrist pain (Acute) Post-traumatic osteoarthritis of left ankle (Chronic) Abnormal laboratory test result (Acute) TSH DEFICIENCY Acute hepatitis C (Acute) Allergic rhinitis (Acute) Asthma (Acute) Cervical intraepithelial neoplasia grade 1 (Acute) Chronic pelvic pain in female (Acute) Depressive disorder (Acute) Dyslipidemia (Acute) Headache (Acute) Obstructive sleep apnea syndrome (Acute) Enlarged pituitary gland (Acute) Smoker (Acute) Substance abuse (Acute) Uterovaginal prolapse (Acute) PELVIC RELAXATION Fracture of left distal radius (Acute) Status post closed reduction on 05/06/2018 Surgical History Cervical Conization/LEEP (~2005) section (~10/2004) Excision, Pilonidal Cyst (06/10/12) Laparoscopic, Ovarian Cystectomy (10/11/11) RIGHT LEFT ANKLE SURGERY (~1999) Ligation of fallopian tube (03/25/07) Social History Smoking/Tobacco Use Status: Current every day Tobacco Type: cigarettes Smoking risk assessment performed?: Yes Alcohol Intake: current Alcohol Intake frequency: a few times a month Alcohol type: other Drug use: Daily Substance use type: marijuana Details: marijuana at bedtime Do you feel safe at home: Yes Do you feel safe in your relationship?: Yes Exam Const General: cooperative and no acute distress HENMT Head: normocephalic and atraumatic Cardio Rate: regular rate and not tachycardic Rhythm: regular rhythm Neuro General: patient alert, patient awake and tone normal Extrem General: no edema Right upper extremity: hand Details: neurosensory exam normal, tenderness Location: of the 4th digit Location: at the MCP joint, abnormal ROM of finger Details: pain with active ROM Location: of the 3rd digit, of the 4th digit and of the 5th digit, swelling Location: of the dorsal hand and ecchymosis Location: of the dorsal hand and of the palm Course Vital Signs Vital signs: Vital Signs Temperature 36.8 C 09/19/21 23:45 Pulse 125 H 09/19/21 23:45 Respiratory Rate 18 09/19/21 23:45 Blood Pressure 148/100 H 09/19/21 23:45 Pulse Oximetry 99 09/19/21 23:45 Temperature 36.8 C 09/19/21 23:45 Temperature Source Skin 09/19/21 23:45 Pulse 125 H 09/19/21 23:45 Respiratory Rate 18 09/19/21 23:45 Respiratory Effort Non-Labored 09/19/21 23:50 Blood Pressure 148/100 H 09/19/21 23:45 Pulse Oximetry 99 09/19/21 23:45 Pain Level 7 09/19/21 23:45
[2021-09-20] MEDS: Ibuprofen 600 MG TAB PO (00:14)
--- NOTE | 2021-09-20 01:03 | DI.VRAD_ITS ---
PROCEDURE INFORMATION: Exam: XR Right Hand Exam date and time: 09/20/2021 12:28 AM Age: 36 years old Clinical indication: Injury or trauma; Blunt trauma (contusions or hematomas); Hand; Right; Injury date: 09/19/21; Injury details: Fall, tender 3-5 digits TECHNIQUE: Imaging protocol: Radiologic exam of the Right hand. Views: 3 or more views. COMPARISON: CR XR HAND RT COMPLETE 02/27/2019 8:45 PM FINDINGS: Bones/joints: No evidence of fracture. Negative for dislocation. Negative for bony erosion or destructive change. Soft tissues: No soft tissue air. No foreign bodies. Soft tissue swelling noted dorsal to the metacarpophalangeal joints. IMPRESSION: No acute osseous abnormality. If symptoms persist, follow-up imaging is advised. Dictated and Authenticated by: Matthew Lucas MD. Ordering:CHINA Marr MD
[2021-09-20 01:44] VITALS: PULSE 105; RESP 16; O2SAT 98
== END 2021-09-20 01:45 | disposition home or self-care (01) ==
PROVIDERS: Emergency Provider Student in an Organized Health Care Education/Training Program; PCP Internal Medicine
DX: S60.221A Contusion of right hand, initial encounter (principal); F17.210 Nicotine dependence, cigarettes, uncomplicated; W01.0XXA Fall on same level from slipping, tripping and stumbling without subsequent striking against object, initial encounter; Y92.89 Other specified places as the place of occurrence of the external cause
CPT/HCPCS: 29125; 99283; 73130; 99284

== ENCOUNTER 2022-02-07 17:05 | Emergency (ER) | payer MEDICAID, SELFPAY ==
[2022-02-07 17:12] VITALS: BP 143/104; PULSE 103; RESP 20; TEMP 37; O2SAT 98
--- NOTE | 2022-02-07 17:15 | DI.RAD_ITS ---
Exam(s) XR WRIST LT COMPLETE EXAM: XR WRIST LT COMPLETE CLINICAL HISTORY: fall, pain. TECHNIQUE: 2D digital imaging was performed of the left wrist. Three images were obtained. PA, obl ique and lateral views were obtained. COMPARISON: CR XR WRIST LT COMPLETE from 02/07/2021 FINDINGS: BONES: There is an old distal left radial fracture deformity. There is a tiny osseous density glass ribbon machine operator ior to the distal radius and ulna on the lateral view. This was not present on the prior examination . No definite acute fracture is identified. No bony destructive lesion is seen. JOINTS: The carpal bones are normally aligned. SOFT TISSUE: Normal. IMPRESSION: Tiny 1-2 mm density in the soft tissues posterior to the distal radius and ulna of indeterminate if a ny clinical significance. Please correlate clinically. If symptoms persist, a CT scan of the wrist may be obtained to exclude a fracture. DATA REPOSITORY: RADIATION DOSE DELIVERED:
--- NOTE | 2022-02-07 17:57 | DI.VRAD_ITS ---
PROCEDURE INFORMATION: Exam: XR Left Wrist Exam date and time: 02/07/2022 5:32 PM Age: 37 years old Clinical indication: Other: Fall, injury TECHNIQUE: Imaging protocol: Radiologic exam of the Left wrist. Views: 3 or more views. COMPARISON: CR XR WRIST LT COMPLETE 02/07/2021 11:59 AM FINDINGS: Bones/joints: Chronic distal radial deformity. Faint fragment versus ossification on the lateral film dorsally measuring 1-2 mm new since the prior study. Lucency along the radial aspect of the distal radius on the oblique film of indeterminate age Soft tissues: Swelling over the distal radius and ulna IMPRESSION: Swelling and indeterminate age fracture in the distal left radius. Indeterminate age faint avulsion fracture versus calcification dorsally as noted. Further evaluation as clinically indicated Dictated and Authenticated by: Biju Loera MD. Ordering:TERE Gonzalez MD
--- NOTE | 2022-02-07 18:11 | W.ED.GENAD ---
Discharge Plan Disposition Patient Disposition: Home Condition: Stable Discharge Details Clinical Impression: Fracture of left wrist Primary Care Provider: Roxanne Edwards ED Provider: Lisa Duarte Home Meds and New Rx's Prescriptions: Continued ibuprofen 600 MG tablet 600 mg PO TID Qty: 30 0RF diphenhydramine-acetaminophen [Tylenol PM Extra Strength] 25-500 mg Tablet 1 tab PO Q6H PRN Discharge Instructions Instructions: Wrist Fracture in Adults (ED) Additional Instructions: Wear wrist splint until evaluated by orthopedics Continue elevation heat or ice and ibuprofen and/or acetaminophen for pain Referrals: Rickie Carter MD [ [facility] STAFF PHYSICIAN] - Medical Decision Making X-ray left wrist with swelling and indeterminate age fracture in the distal left radius indeterminate age faint avulsion fracture versus calcification dorsally also. We will place her in a wrist splint continue conservative management and follow-up with orthopedics for further recommendations Imaging Data Radiologic Study: Imaging: X-Ray (Left wrist) Radiologist's impression: Exam(s) PROCEDURE INFORMATION: Exam: XR Left Wrist Exam date and time: 02/07/2022 5:32 PM Age: 37 years old Clinical indication: Other: Fall, injury TECHNIQUE: Imaging protocol: Radiologic exam of the Left wrist. Views: 3 or more views. COMPARISON: CR XR WRIST LT COMPLETE 02/07/2021 11:59 AM FINDINGS: Bones/joints:? Chronic distal radial deformity. Faint fragment versus ossification on the lateral film dorsally measuring 1-2 mm new since the prior study.? Lucency along the radial aspect of the distal radius on the oblique film of indeterminate age Soft tissues:? Swelling over the distal radius and ulna IMPRESSION: Swelling and indeterminate age fracture in the distal left radius. Indeterminate age faint avulsion fracture versus calcification dorsally as noted.? Further evaluation as clinically indicated Dictated and Authenticated by: Biju Loera MD. Ordering:TERE Gonzalez MD Sign Out No HPI General Date/Time Provider Initiated Documentation: 02/07/22 17:14. Limitations to Documentation: no limitations. Information obtained by: patient. HPI Narrative: 37-year-old female patient who was in her usual state of health when she had a mechanical fall about 3 days ago slipping down a staircase. She put her left hand out to break her fall and has had left wrist pain mostly anterior that radiates up to her hand with reported numbness and tingling in her fingers. She states she has had a previous fracture to this wrist. There is no other injuries reported Related Data Home Medications Medication Instructions Recorded Confirmed ibuprofen 600 mg tablet 600 mg PO TID #30 tabs 07/11/17 09/19/21 diphenhydramine 25 1 tab PO Q6H PRN 06/10/21 09/19/21 mg-acetaminophen 500 mg tablet (Tylenol PM Extra Strength) Previous Rx's Medication Instructions Recorded ibuprofen 600 mg tablet 600 mg PO TID #30 tabs 07/11/17 Allergies Allergy/AdvReac Type Severity Reaction Status Date / Time peanut Allergy Mild Skin Rash Unverified 09/19/21 23:48 latex Allergy Unknown RASH Unverified 09/19/21 23:48 codeine Allergy GI upset, Unverified 09/19/21 23:48 itchy adhesive AdvReac Skin Rash Unverified 09/19/21 23:48 wellbutrin generic Allergy Uncoded 09/19/21 23:48 General Stated Complaint: Orthopedic EZRA: 4 Review of Systems All systems reviewed & are unremarkable except as noted in HPI and below Musculoskeletal Musculoskeletal: Denies deformity, Reports arthralgias, Reports joint swelling (Minimal), Reports radiating pain into limb and Reports tingling Neurologic Neurologic: Reports tingling Hematologic/Lymphatic Hematologic/Lymphatic: Denies easy bleeding and Denies easy bruising PFSH All Active Problems Fracture of left wrist (Acute) Left carpal tunnel syndrome (Acute) Left wrist pain (Acute) Post-traumatic osteoarthritis of left ankle (Chronic) Abnormal laboratory test result (Acute) TSH DEFICIENCY Acute hepatitis C (Acute) Allergic rhinitis (Acute) Asthma (Acute) Cervical intraepithelial neoplasia grade 1 (Acute) Chronic pelvic pain in female (Acute) Depressive disorder (Acute) Dyslipidemia (Acute) Headache (Acute) Obstructive sleep apnea syndrome (Acute) Enlarged pituitary gland (Acute) Smoker (Acute) Substance abuse (Acute) Uterovaginal prolapse (Acute) PELVIC RELAXATION Fracture of left distal radius (Acute) Status post closed reduction on 05/06/2018 Surgical History Cervical Conization/LEEP (~2005) section (~10/2004) Excision, Pilonidal Cyst (06/10/12) Laparoscopic, Ovarian Cystectomy (10/11/11) RIGHT LEFT ANKLE SURGERY (~1999) Ligation of fallopian tube (03/25/07) Social History Smoking/Tobacco Use Status: Current every day Tobacco Type: cigarettes Smoking risk assessment performed?: Yes Alcohol Intake: current Alcohol Intake frequency: a few times a month Alcohol type: other Drug use: Daily Substance use type: marijuana Details: marijuana at bedtime Do you feel safe at home: Yes Do you feel safe in your relationship?: Yes Exam Const General: cooperative, healthy appearing, comfortable and no acute distress Nutritional Appearance: average body habitus Orientation: alert, awake and oriented x3 HENMT Head: normal to inspection, normocephalic and atraumatic Mouth: oral mucosae normal Resp Effort & Inspection: normal respiratory effort Cardio Rate: regular rate Rhythm: other (Good radial pulse) Extrem Left upper extremity: wrist Details: tenderness Location: of the dorsal wrist and abnormal ROM Details: pain with active ROM and pain with passive ROM; no ecchymosis and no deformity; no edema (Scant) Course Vital Signs Vital signs: Vital Signs Temperature 37.0 C 02/07/22 17:12 Pulse 103 H 02/07/22 17:12 Respiratory Rate 20 02/07/22 17:12 Blood Pressure 143/104 H 02/07/22 17:12 Pulse Oximetry 98 02/07/22 17:12 Temperature 37.0 C 02/07/22 17:12 Temperature Source Tympanic 02/07/22 17:12 Pulse 103 H 02/07/22 17:12 Respiratory Rate 20 02/07/22 17:12 Respiratory Effort 02/07/22 17:35 Blood Pressure 143/104 H 02/07/22 17:12 Blood Pressure Position Sitting 02/07/22 17:12 Pulse Oximetry 98 02/07/22 17:12 Oxygen Delivery Method Room Air 02/07/22 17:12 Oxygen Flow Rate 0 02/07/22 17:12 Pain Level 6 02/07/22 17:12
--- NOTE | 2022-02-14 08:18 | NUR.NOTE ---
Nursing Note: Accessed chart for [facility] billing purposes
== END 2022-02-07 18:33 | disposition home or self-care (01) ==
PROVIDERS: Emergency Provider Nurse Practitioner Acute Care; PCP Internal Medicine
DX: S52.502A Unspecified fracture of the lower end of left radius, initial encounter for closed fracture (principal); F17.210 Nicotine dependence, cigarettes, uncomplicated; W10.9XXA Fall (on) (from) unspecified stairs and steps, initial encounter; Y99.8 Other external cause status
CPT/HCPCS: 99283; 73110; 99282